=== PATIENT | male | born 1995 | race Caucasian/White ===

== ENCOUNTER 2020-01-02 18:44 | Emergency (ER) | payer SELFPAY ==
[2020-01-02 18:59] VITALS: BP 122/75; PULSE 91; RESP 18; TEMP 36.8; O2SAT 99
--- NOTE | 2020-01-02 19:31 | ED.URI ---
HPI - URI/Sore Throat General Chief Complaint: Upper Respiratory Infection Stated Complaint: sore throat Source: patient Mode of arrival: ambulatory Limitations: no limitations History of Present Illness HPI Narrative: Patient is a 24-year-old male who presents complaining of sore throat x1 week. Patient reports initially started with fever, chills, body aches and cough, all of which is resolved except for cough. Patient reports sore throat x3 days, increasing over the past day. He reports taking some [id number] pain medication with moderate relief. MD elicited complaint: fever, cough and sore throat Related Data Allergies Allergy/AdvReac Type Severity Reaction Status Date / Time No Known Allergies Allergy Mild Verified 01/02/20 19:07 Review of Systems Review of Systems: Narrative: CONSTITUTIONAL: Denies fever, chills, or sweats. EYES: Denies visual changes, redness, or discharge. ENT: Denies rhinorrhea or otalgia. Reports congestion and sore throat CARDIOVASCULAR: Denies chest pain, palpitations, or edema. RESPIRATORY: Reports cough, denies dyspnea. GASTROINTESTINAL: Denies abdominal pain, nausea, vomiting, or diarrhea. GENITOURINARY: Denies dysuria or hematuria. SKIN: Denies rash or itching. MUSCULOSKELETAL: Denies back pain, joint pain, or myalgia. NEUROLOGIC: Denies headache, numbness, dizziness, or weakness. PSYCHIATRIC: Denies anxiety or depression. [facility] Social History Social History (Updated 01/02/20 @ 19:33 by BROWN Nance) Smoking status: Current every day smoker Alcohol intake: current Alcohol use details: Socially Substance use: never Living arrangements: with family Exam Narrative: Exam Narrative: GENERAL: Well-appearing, well-nourished, and in no acute distress. HEAD: Normocephalic, atraumatic. EYES: EOMI. No redness or drainage. Conjunctiva are normal. ENT: Mucous membranes pink and moist. Nares clear. No rhinorrhea. TMs normal bilaterally. Throat erythema and edema noted. Uvula midline. NECK: AROM. Supple. No lymphadenopathy. CHEST: No respiratory distress. Clear to auscultation. HEART: Regular rate and rhythm. No murmur appreciated. Normal peripheral pulses. SKIN: Warm, dry, no rash. NEURO: No focal deficits. Alert and oriented x3. Gait steady. PSYCH: Normal affect. No signs of depression or anxiety. Course Vital Signs Vital signs: Vital Signs Temperature 36.8 C 01/02/20 18:59 Pulse Rate 91 01/02/20 18:59 Respiratory Rate 18 01/02/20 18:59 Blood Pressure 122/75 01/02/20 18:59 Pulse Oximetry 99 01/02/20 18:59 Temperature 36.8 C 01/02/20 18:59 Pulse Rate 91 01/02/20 18:59 Respiratory Rate 18 01/02/20 18:59 Blood Pressure 122/75 01/02/20 18:59 Pulse Oximetry 99 01/02/20 18:59 MDM - URI/Sore Throat Lab Data Labs: Strep Screen Presumptive Negative *(Reference Range: Negative)* Review Critical Care Time Critical Care Time Critical Care Time: No Discharge Plan Discharge Clinical Impression: Upper respiratory infection Qualifiers: URI type: unspecified URI Qualified Code(s): J06.9 - Acute upper respiratory infection, unspecified Patient Disposition: Home, Self-Care Condition: Stable Instructions: Upper Respiratory Infection (DC) Additional Instructions: Take medication as directed. You may take Tylenol or ibuprofen for pain or fever. Follow-up with your PCP in 3 to 5 days if symptoms persist. Prescriptions: New prednisone 50 mg tablet 50 mg PO DAILY Qty: 5 RF: 0 benzonatate 100 mg capsule 100 mg PO TID PRN (Reason: cough) Qty: 14 RF: 0 Follow-up/Referrals: UNKNOWN,DOCTOR [Primary Care Provider] - Time of Disposition: 19:34
== END 2020-01-02 19:44 | disposition home or self-care (01) ==
PROVIDERS: Emergency Provider Nurse Practitioner
DX: J06.9 Acute upper respiratory infection, unspecified (principal); F17.200 Nicotine dependence, unspecified, uncomplicated
CPT/HCPCS: 87081; 87880; 99203; G0463

== ENCOUNTER 2022-09-21 17:49 | Emergency (ER) | payer SELFPAY ==
[2022-09-21 17:59] VITALS: BP 122/80; PULSE 77; RESP 20; TEMP 36.6; O2SAT 100
== END 2022-09-21 23:45 | disposition left against medical advice (07) ==
DX: M54.50 Low back pain, unspecified (principal)
CPT/HCPCS: 99199